=== PATIENT | female | born 1955 | race Caucasian/White ===

== ENCOUNTER 2022-08-26 05:09 | Day surgery (SDC) | payer BC, MEDICAID ==
[2022-08-19 15:02] LABS: BASOPHILS % (AUTO) 0.4 % (0-1); EOSINOPHILS # (AUTO) 0.1 X10'3 (0-0.9); EOSINOPHILS % (AUTO) 1.5 % (0-6); LYMPHOCYTES # (AUTO) 1.9 X10'3 (1.1-4.8); LYMPHOCYTES % (AUTO) 42.3 % (21-51); MEAN CORPUSCULAR HEMOGLOBIN 28.7 PG (27.0-31.0); MEAN CORPUSCULAR HGB CONC 34.6 g/dL (33.0-36.5); MEAN CORPUSCULAR VOLUME 82.9 FL (78-98); MEAN PLATELET VOLUME 9.5 FL (7.4-10.4); MONOCYTES # (AUTO) 0.4 X10'3 (0-0.9); NEUTROPHILS # (AUTO) 2.1 X10'3 (1.8-7.7); NEUTROPHILS % (AUTO) 46.8 % (42-75); PRE OP HEMATOCRIT 43.1 % (35.0-45.0); PRE OP HEMOGLOBIN 14.9 g/dL (12.0-16.0); PRE OP PLATELET COUNT 263 X10'3 (140-440); RED BLOOD COUNT 5.19 X10'6 (4.20-5.60)
[2022-08-19 15:17] LABS: ALBUMIN 3.8 G/DL (3.4-5.0); ALKALINE PHOSPHATASE 86 IU/L (46-116); BLOOD UREA NITROGEN 15 MG/DL (7-18); BUN/CREATININE RATIO 17.9 (6.6-38.0); CALCIUM 9.6 MG/DL (8.5-10.1); CHLORIDE 103 MMOL/L (99-107); CREATININE 0.84 MG/DL (0.40-0.90); PRE OP ALT 32 U/L (30-65); PRE OP ANION GAP 8 (8-16); PRE OP AST 27 U/L (10-37); PRE OP BILIRUB, TOTAL 0.6 MG/DL (0.0-1.0); PRE OP GLUCOSE 180 MG/DL (70-104); PRE OP POTASSIUM 4.1 MMOL/L (3.4-5.1); PRE OP SODIUM 143 MMOL/L (135-145); TOTAL CARBON DIOXIDE 32.4 MMOL/L (24-32); TOTAL PROTEIN 7.7 G/DL (6.4-8.2); eGFR 68 ML/MIN
[~2022-08-26] VITALS: Ht 162.6 cm; Wt 67.1 kg
[2022-08-26] VITALS (7 sets, daily range): BP systolic 120–143; BP diastolic 64–77
[~2022-08-26 05:09] MED LIST: ALEN70TA37 PO; AMLO-708 PO; BETA15CR4 TOP; CALCIUM,MAG,ZINC; CETI-90 PO; CHOL4POW4 PO; DICL100G30 TOP; ESTR1TAB28 PO; FERROUS SULFATE; GABA300C PO; HYOS-27 PO; LEVO50TA8 PO; LISI40TA13 PO; MELATONIN PO; MELO-102 PO; METF-900 PO; METO50TA16 PO; MULT-1085 PO; NORT10CA81 PO; NORT50CA PO; NPH,100V2 SQ; OMEP20CA16 PO; ROSU40TA22 PO; SUMA100T16 PO; TRAZ-251 PO; TURMERIC; VITAMIN B-12; VITAMIN C; ringers solution, lacted 1,000 ML IV SCH
[2022-08-26] MEDS ORDERED: clindamycin-Cleocin 900mg/D5W 50 ML IV ONE (05:30)
[2022-08-26] MEDS ORDERED: famotidine 20mg tablet PO ONE (05:30)
[2022-08-26] MEDS ORDERED: DOCUMENT DATE & TIME OF BETA-BLOCKER PO ONE (05:30)
[2022-08-26] MEDS ORDERED: LIDOcaine 1% (10mg/ml) 2ml vial ONE (05:50)
[2022-08-26] MEDS ORDERED: BUPIVAcaine/PF 2.5 mg/ml (0.25%) 30ml vial ONE (07:06)
[2022-08-26] MEDS ORDERED: MIDAZolam 1mg/ml 10ml vial ONE (07:10)
[2022-08-26] MEDS ORDERED: fentaNYL/PF 50MCG/1 ML 2ML syringe ONE (07:11)
[2022-08-26] MEDS ORDERED: LIDOcaine 0.5% (5mg/ml) 50ml vial ONE (07:13)
[2022-08-26] MEDS ORDERED: ketorolac trometh. 30mg/ml inj. ONE (07:15)
[2022-08-26] MEDS ORDERED: ringers solution, lacted 1,000 ML IV SCH (07:20)
[2022-08-26] MEDS ORDERED: ondansetron/PF 4mg/2ml inj IV PRN (07:20)
[2022-08-26] MEDS ORDERED: morphine 2 MG/ML inj. syringe IV PRN (07:20)
[2022-08-26] MEDS ORDERED: morphine 4 MG/ML inj SYRINge IV PRN (07:20)
[2022-08-26] MEDS ORDERED: hydrALAZINE 20mg/ml inj. IV PRN (07:20)
[2022-08-26] MEDS ORDERED: labetalol 20mg/4ml (5mg/ml) syringe IV PRN (07:20)
[2022-08-26] MEDS ORDERED: fentaNYL/PF 50MCG/1 ML 2ML syringe IV PRN ×2 (07:20)
--- NOTE | 2022-08-26 08:40 | NUR ---
Received from OR via [facility], accompanied by Anesthesiologist and report given by SOFYA Anesthesiologist. PATIENT WAKING UP, NO S/S OF PAIN, V/S WNL, SCD ON, PIV 20G TO RIGHT HAND, LEFT WRIST DRESSING CDI. ICE AND ELEVATED LUE. Addendum: 08/26/22 at 0849 by Tapan Hubbard RN Amended: Links added.
--- NOTE | 2022-08-26 09:30 | NUR ---
ALL DISCHARGE CRITERIA HAS BEEN MET. VSS, PAIN AT A TOLERABLE LEVEL, ABLE TO SAFELY AMBULATE AND TRANSFER SELF. IV TAKEN OUT WITHOUT ANY COMPLICATIONS. ALL DISCHARGE INSTRUCTIONS COVERED WITH PATIENT AND ALL QUESTIONS ANSWERED. PATIENT TAKEN OUT VIA WHEELCHAIR WITH ALL BELONGINGS TO PERSONAL VEHICLE WHERE FAMILY DROVE PATIENT HOME. Addendum: 08/26/22 at 9648 by Tapan Hubbard RN Amended: Links added.
== END 2022-08-26 09:30 | disposition home or self-care (01) ==
LOC: PAS 05:09
PROVIDERS: ATTEND Orthopaedic Surgery Hand Surgery
DX: G56.02 Carpal tunnel syndrome, left upper limb (principal); M18.12 Unilateral primary osteoarthritis of first carpometacarpal joint, left hand; I10 Essential (primary) hypertension; M19.90 Unspecified osteoarthritis, unspecified site; K21.9 Gastro-esophageal reflux disease without esophagitis; E11.42 Type 2 diabetes mellitus with diabetic polyneuropathy; Z79.899 Other long term (current) drug therapy; Z90.710 Acquired absence of both cervix and uterus; Z98.51 Tubal ligation status; Z98.890 Other specified postprocedural states; E03.9 Hypothyroidism, unspecified; Z88.0 Allergy status to penicillin; Z88.6 Allergy status to analgesic agent; Z88.8 Allergy status to other drugs, medicaments and biological substances; Z91.040 Latex allergy status
CPT/HCPCS: 25312; 25447; 36415; 64721; 80053; 82948; 85025; 93005; J1885; J2250; J3010; J3490; J7030; J7120; Z7506; Z7512; A4215; A6449; A7000

== ENCOUNTER 2024-06-17 09:11 | Day surgery (SDC) | payer BC, MEDICAID ==
[2024-06-10 15:29] LABS: BASOPHILS % (AUTO) 0.3 % (0-1); EOSINOPHILS # (AUTO) 0.1 X10'3 (0-0.9); EOSINOPHILS % (AUTO) 1.8 % (0-6); LYMPHOCYTES # (AUTO) 1.5 X10'3 (1.1-4.8); LYMPHOCYTES % (AUTO) 37.8 % (21-51); MEAN CORPUSCULAR HEMOGLOBIN 28.3 PG (27.0-31.0); MEAN CORPUSCULAR HGB CONC 33.8 g/dL (33.0-36.5); MEAN CORPUSCULAR VOLUME 83.9 FL (78-98); MEAN PLATELET VOLUME 9.6 FL (7.4-10.4); MONOCYTES # (AUTO) 0.4 X10'3 (0-0.9); MONOCYTES % (AUTO) 9.7 % (2-12); NEUTROPHILS % (AUTO) 50.4 % (42-75); PRE OP HEMATOCRIT 41.9 % (35.0-45.0); PRE OP HEMOGLOBIN 14.2 g/dL (12.0-16.0); PRE OP PLATELET COUNT 213 X10'3 (140-440); PRE OP WHITE BLOOD COUNT 3.9 10'3 (4.8-10.8)
[2024-06-10 15:43] LABS: ALBUMIN 3.9 G/DL (3.4-5.0); ALBUMIN/GLOBULIN RATIO 1.1 (1.1-1.5); ALKALINE PHOSPHATASE 53 IU/L (46-116); BLOOD UREA NITROGEN 15 MG/DL (7-18); BUN/CREATININE RATIO 14.6 (10.0-20.0); CALCIUM 9.8 MG/DL (8.5-10.1); CHLORIDE 101 MMOL/L (99-107); CREATININE 1.03 MG/DL (0.40-0.90); PRE OP ALT 23 U/L (30-65); PRE OP ANION GAP 9 (8-16); PRE OP AST 16 U/L (10-37); PRE OP BILIRUB, TOTAL 0.7 MG/DL (0.0-1.0); PRE OP GLUCOSE 128 MG/DL (70-104); PRE OP POTASSIUM 4.4 MMOL/L (3.4-5.1); PRE OP SODIUM 137 MMOL/L (135-145); TOTAL CARBON DIOXIDE 26.7 MMOL/L (24-32); TOTAL PROTEIN 7.6 G/DL (6.4-8.2); eGFR 53 ML/MIN
[~2024-06-17] VITALS: Ht 162.6 cm; Wt 55.3 kg
[2024-06-17] MEDS: DOCUMENT DATE & TIME OF BETA-BLOCKER PO ONE (05:30)
[2024-06-17] MEDS: famotidine 20mg tablet PO ONE (05:30)
[~2024-06-17 09:11] MED LIST changes: +ASCO-10 PO; -BETA15CR4 TOP; -CALCIUM,MAG,ZINC; -CETI-90 PO; -CHOL4POW4 PO; +CYAN25003 SL; +DAPA5TAB PO; -DICL100G30 TOP; -ESTR1TAB28 PO; +FERR-39 PO; -FERROUS SULFATE; -HYOS-27 PO; -MELATONIN PO; -NPH,100V2 SQ; +ROSU20TA73 PO; -ROSU40TA22 PO; -SUMA100T16 PO; +TROS60CA3 PO; -TURMERIC; +TURMERIC PO; -VITAMIN B-12; -VITAMIN C; +clindamycin-Cleocin 900mg/D5W 50 ML IV ONE
[2024-06-17 09:24] VITALS: BP 123/51; PULSE 71; RESP 16; TEMP 98.1; O2SAT 99
[2024-06-17] MEDS ORDERED: meperidine/PF 25mg/ml syringe IV PRN ×3 (10:25)
[2024-06-17] MEDS ORDERED: ringers solution, lacted 1,000 ML IV SCH (10:25)
[2024-06-17] MEDS ORDERED: proCHLORperazine 10 MG/2 ml inj IV PRN (10:25)
[2024-06-17] MEDS ORDERED: morphine 2 MG/ML inj. syringe IV PRN (10:25)
[2024-06-17] MEDS ORDERED: morphine 4 MG/ML inj SYRINge IV PRN (10:25)
[2024-06-17] MEDS ORDERED: ondansetron/PF 4mg/2ml inj IV PRN (10:25)
[2024-06-17] MEDS ORDERED: fentaNYL/PF 50MCG/1 ML 2ML syringe ONE (10:48)
[2024-06-17] MEDS ORDERED: midazolam 1 mg/ML 2ml injection ONE (10:48)
[2024-06-17] MEDS ORDERED: propofol inj 20 ML IV ONE (10:49)
[2024-06-17] MEDS ORDERED: LIDOcaine 0.5% (5mg/ml) 50ml vial ONE (10:50)
[2024-06-17] MEDS: BUPIVAcaine/PF 2.5mg/ml (0.25%) 10ml vial ONE (11:33)
[2024-06-17] MEDS: LIDOcaine 2% (20mg/ml) 5ml vial ONE (11:34)
[2024-06-17 12:01] VITALS: BP 114/60; PULSE 74; PULSE 75; RESP 11; RESP 14; O2SAT 97
[2024-06-17 12:11] VITALS: BP 131/48; PULSE 74; RESP 13; O2SAT 96
[2024-06-17 12:21] VITALS: BP 148/74; PULSE 75; RESP 13; O2SAT 97
[2024-06-17 12:31] VITALS: BP 152/80; PULSE 73; RESP 16; O2SAT 98
[2024-06-17 12:41] VITALS: PULSE 74; O2SAT 97
== END 2024-06-17 12:51 | disposition home or self-care (01) ==
LOC: PAS 09:11
PROVIDERS: ATTEND Orthopaedic Surgery Hand Surgery
DX: M18.11 Unilateral primary osteoarthritis of first carpometacarpal joint, right hand (principal); M77.11 Lateral epicondylitis, right elbow; I10 Essential (primary) hypertension; E11.42 Type 2 diabetes mellitus with diabetic polyneuropathy; E03.9 Hypothyroidism, unspecified; E78.00 Pure hypercholesterolemia, unspecified; K21.9 Gastro-esophageal reflux disease without esophagitis; G43.909 Migraine, unspecified, not intractable, without status migrainosus; M81.0 Age-related osteoporosis without current pathological fracture; M19.90 Unspecified osteoarthritis, unspecified site; Z79.84 Long term (current) use of oral hypoglycemic drugs; Z79.890 Hormone replacement therapy; Z79.891 Long term (current) use of opiate analgesic; Z79.899 Other long term (current) drug therapy; Z90.710 Acquired absence of both cervix and uterus; Z98.51 Tubal ligation status; Z98.890 Other specified postprocedural states; Z88.0 Allergy status to penicillin; Z88.5 Allergy status to narcotic agent; Z91.040 Latex allergy status; Z88.8 Allergy status to other drugs, medicaments and biological substances; Z82.49 Family history of ischemic heart disease and other diseases of the circulatory system; Z83.3 Family history of diabetes mellitus; Z82.5 Family history of asthma and other chronic lower respiratory diseases; Z83.49 Family history of other endocrine, nutritional and metabolic diseases; Z80.9 Family history of malignant neoplasm, unspecified
CPT/HCPCS: 24359; 25310; 25447; 36415; 80053; 82948; 85025; 93005; J2250; J2704; J3010; J3490; J7030; J7120; Z7506; Z7508; Z7512; A4215; A4618; A6449; A7000